=== PATIENT | female | born 1990 | race Caucasian/White ===

== ENCOUNTER 2023-06-27 14:10 | Outpatient (CLI) | payer BC, SELFPAY ==
--- NOTE | 2023-06-27 14:30 | CRLHL7_ITS ---
For Patients: As a result of the 21st Century Cures Act, medical imaging exams and procedure reports are released immediately into your electronic medical record. You may view this report before your referring provider. If you have questions, please contact your health care provider. BILATERAL BREAST MRI WITHOUT AND WITH GADOLINIUM, 06/27/2023 CLINICAL HISTORY: 32-year-old female with history of breast cancer in her mother at 53. The patient carries the BRCA2 gene mutation. INDICATION FOR BREAST MRI: Screening breast MRI in this high-risk woman. COMPARISON STUDIES: Mammogram 12/27/2022. CONTRAST: 14 mL Dotarem. TECHNIQUE: The patient was positioned prone using a breast coil. Multiple imaging sequences were obtained using 1-1.5 mm thick slices with no gap. The image sequences include T2-weighted STIR in the axial plane, T1-weighted nonfat-saturated gradient echo in the axial plane, pre- and post-contrast T1-weighted FLASH 3D with fat suppression in the axial plane, and T1-weighted FLASH high-resolution 3D with fat suppression in the sagittal plane. Image post-processing was performed on a [employer] workstation. Complex 3D rendering including maximum intensity projections (MIPS) and volumetric renderings were obtained to optimize visualization of the extent of pathology and relationship to the nipple, skin, and chest wall. This aids in determining feasibility of breast conservation surgery. Subtraction, multiplanar reconstruction, mean curve determination, and angiogenesis mapping were also performed. The study was technically adequate. FINDINGS: Amount of Fibroglandular Tissue: Scattered fibroglandular tissue. Breast Background Enhancement: Mild. RIGHT/LEFT Breast: There is no suspicious enhancement in either breast. Lymph Nodes: No abnormal lymph nodes. IMPRESSIONS AND RECOMMENDATIONS: No MRI findings for malignancy in either breast. Would recommend continuing with yearly screening mammography alternating at six-month intervals with the screening mammogram. BI-RADS Category 2: Benign Lucy Coulter M.D. Diagnostic/Breast Radiologist [email or web address] JALEN/[email or web address] samuel/Dictated by: Lucy Coulter MD @ 07/01/2023 5:05:00 PM (Electronically Signed)
== END 2023-06-27 14:11 | disposition home or self-care (01) ==
LOC: MRI 14:10
PROVIDERS: PCP Family Medicine; Visit Provider Obstetrics & Gynecology
DX: Z12.39 Encounter for other screening for malignant neoplasm of breast (principal); Z15.01 Genetic susceptibility to malignant neoplasm of breast; Z15.09 Genetic susceptibility to other malignant neoplasm
CPT/HCPCS: 77049; A9575

== ENCOUNTER 2024-04-20 12:39 | Outpatient (CLI) | payer BC, SELFPAY ==
--- NOTE | 2024-04-20 13:00 | CRLHL7_ITS ---
For Patients: As a result of the Century Cures Act, medical imaging exams and procedure reports are released immediately into your electronic medical record. You may view this report before your referring provider. If you have questions, please contact your health care provider. BILATERAL BREAST MRI WITHOUT AND WITH GADOLINIUM CLINICAL HISTORY: BRCA2 gene mutation positive. History of mother with breast cancer at age 53. INDICATION FOR BREAST MRI: Screening breast MRI in this high risk woman. COMPARISON STUDIES: Bilateral mammogram January 28, 2024. CONTRAST: Dotarem 20 mL. TECHNIQUE: The patient was positioned prone using a breast coil. Multiple imaging sequences were obtained using 1-1.5 mm thick slices with no gap. The image sequences include T2-weighted STIR in the axial plane, T1-weighted nonfat-saturated gradient echo in the axial plane, pre- and post-contrast T1-weighted FLASH 3D with fat suppression in the axial plane, and T1-weighted FLASH high resolution 3D with fat suppression in the sagittal plane. Image post-processing was performed on a [employer] workstation. Complex 3D rendering including maximum intensity projections (MIPS) and volumetric renderings were obtained to optimize visualization of the extent of pathology and relationship to the nipple, skin, and chest wall. This aids in determining feasibility of breast conservation surgery. Subtraction, multiplanar reconstruction, mean curve determination, and angiogenesis mapping were also performed. The study was technically adequate. FINDINGS: Amount of Fibroglandular Tissue: Scattered. Breast Background Enhancement: Mild. RIGHT Breast: No suspicious mass or non-mass enhancement. LEFT Breast: No suspicious mass or non-mass enhancement. Lymph Nodes: Lymph nodes show normal size and morphology. IMPRESSIONS AND RECOMMENDATIONS: Negative for signs of malignancy. Follow-up with annual screening mammography. If continuing breast MRI this is best offset from mammogram by 6 months. BI-RADS Category 1: Negative Dictated by Nadya Bucio MD @ 04/21/2024 4:13:43 PM /sp SP/Dictated by: Nadya Bucio MD @ 04/21/2024 4:14:00 PM (Electronically Signed)
== END 2024-04-20 12:40 | disposition home or self-care (01) ==
LOC: MRI 12:40
PROVIDERS: PCP Family Medicine; Visit Provider Surgery
DX: Z12.39 Encounter for other screening for malignant neoplasm of breast (principal); Z15.01 Genetic susceptibility to malignant neoplasm of breast; Z15.09 Genetic susceptibility to other malignant neoplasm; Z80.3 Family history of malignant neoplasm of breast
CPT/HCPCS: 77049; A9575

== ENCOUNTER 2024-04-29 11:37 | Outpatient (CLI) | payer BC, SELFPAY | END 2024-04-29 11:38 | disposition home or self-care (01) | PROVIDERS: PCP Family Medicine; Visit Provider Obstetrics & Gynecology | DX: R68.82 Decreased libido (principal); N92.0 Excessive and frequent menstruation with regular cycle | CPT/HCPCS: 84403; 84443 ==